=== PATIENT | male | born 1980 | race Caucasian/White ===

== ENCOUNTER 2017-07-25 00:44 | Emergency (ER) | payer OTHER ==
[~2017-07-25] VITALS: Ht 177.8 cm; Wt 93.0 kg
[~2017-07-25 00:44] MED LIST: CIPRO 500MG TA500 MG PO; KEFLEX 500MG.500 MG PO; MEDROL 4MG. DOSE4 MG PO; NOMEDS XX
--- OUTSIDE RECORDS SUMMARY | 2017-07-25 00:54 | External Medical Summary Rpt | CCD ---
Author Author JANNET Address Unknown Phone [email or web address] Purpose Continuity of Care Document - through 2016
--- OUTSIDE RECORDS SUMMARY | 2017-07-25 00:54 | External Medical Summary Rpt | CCD ---
Author Author Conduent Organization Conduent Address Unknown Phone Unavailable Purpose Continuity of Care Document - through 2016
--- OUTSIDE RECORDS SUMMARY | 2017-07-25 00:54 | External Medical Summary Rpt | CCD ---
Author Author JANNET Address Unknown Phone [email or web address] Purpose Continuity of Care Document - through 2016
--- OUTSIDE RECORDS SUMMARY | 2017-07-25 00:55 | External Medical Summary Rpt | CCD ---
Demographics Preferred Language Latvian Marital Status Unknown Cheondoism Affiliation Unknown Race Unknown Ethnic Group Unknown Author Author , JANNET Organization JANNET Address Unknown Phone [email or web address] Immunization Name Date Rout CVX Reac Dose Comm Prov Is Faci e tion ent ider Refu lity Give sed n Td 08- 9 999 Hist H149 No H149 (miriam 03-17 oric lt), 96 al Info adso rmat rbed ion - Sour ce Unsp ecif ied Serge 08 2 999 Hist H149 No H149 o-OP - oric V 96 al Info rmat ion - Sour ce Unsp ecif ied
--- OUTSIDE RECORDS SUMMARY | 2017-07-25 00:55 | External Medical Summary Rpt | CCD ---
Demographics Preferred Language [place] Islander Marital Status Unknown Sikh Affiliation Unknown Race Unknown Ethnic Group Unknown Author Author , JANNET Organization JANNET Address Unknown Phone [email or web address] Immunization Name Date Rout CVX Reac Dose [...]
--- NOTE | 2017-07-25 01:04 | Emergency Room Report ---
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 N Clinical Suspician of Infection? Y Mental Status: 1 - Regular (Normal Baseline) Sepsis Risk:Low Sepsis Risk Have you (or family members/close friends) recently traveled outside the [place]? N If Yes, where/when: Have you had exposure to infectious disease within the past month? N TB? Other? Specify: Comment The patient complains of a 24 hour history of LEFT upper dental pain with facial swelling. No fever. He does have a dentist that he can follow-up with. ALLERGIES Coded Allergies: No Known Allergies (10/08/15) Home Medications Active Scripts CEPHALEXIN (Keflex 500MG Capsule) 500 MG PO Q8H #30 CAP Prov: 10/08/15 Reported Medications No Home Medications (NO HOME MEDICATIONS) 1 EACH XX ONCE History Medical History General CAD? No Angina: No MS: No Hypertension? No Hyperlipidemia? No CHF? No DVT? No PE? No COPD? No Asthma? No Anemia? No GERD? No Gastric ulcers? No GI Bleed? No Hernia? No Thyroid Problems? No Hypothyroidism? No CVA? No Seizures? No Diabetes? No Renal Insuffiency? No End Stage Renal Disease? No UTI? No Stones? No BPH? No GB Disease: No Nephritic Syndrome? No Asplenia? No Hepatitis? No Sickle Cell Disease? No Arthritis? No Migraines? No Cataracts? No Glaucoma? No MRSA? No HIV? No TB? No Anxiety? No Depression? No Cancer? No More? No Immunization Hx DT/Tetanus 5-10 Years Ago Surgical Hx Previous Surgery?Y Oral Surgery Social History Smoking Hx Smoker: Current Every Day Smoker Tobacco: Yes Type Cigarettes Packs/day < 1 Pack Alcohol Alcohol: No Review of Systems All Other Systems Reviewed and Negative Constitutional denies fever ENT mouth pain, dental caries. Physical Exam Vital Signs Vital Signs Date Time Temp Pulse Resp B/P Pulse O2 O2 Flow FiO2 Ox Delivery Rate 07/25 0143 99.0 83 20 148/84 99 07/25 0048 99.0 83 20 148/84 99 General Appearance mild distress (pain) Ear, Nose, Throat poor dentition. Severe dental caries diffusely. All of his teeth in the LEFT maxillary area are eroded down to the gumline. There is some generalized edema around his posterior LEFT maxillary teeth, but no pointing or visible abscess., LEFT facial swelling, malar. Tender. No induration or fluctuance., airway patent. No drooling or stridor., no sublingual or submandibular swelling. Respiratory Status No: respiratory distress. 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 Yes Mik was queried for this patient? Yes Comment [id number] rxs. Results/Orders Current Medication Orders Sig/Wei Start time Last Medication Dose Route Stop Time Status Admin Ceftriaxone Sodium 0 .STK-MED ONE 07/25 133 DC .ROUTE Lidocaine HCl 0 .STK-MED ONE 07/25 133 DC .ROUTE Lidocaine HCl 0 .STK-MED ONE 07/25 133 DC .ROUTE Acetaminophen/ 0 .STK-MED ONE 07/25 132 DC Codeine Phosphate PO Acetaminophen/ 1 MELANIE ONCE ONE 07/25 130 DC 07/25 Codeine Phosphate PO 07/25 Ceftriaxone Sodium 1 GM ONCE ONE 07/25 130 DC 07/25 IM 07/25 Lidocaine HCl 0 ONCE ONE 07/25 130 DC 07/25 IM 07/25 Lidocaine HCl 15 ML ONCE ONE 07/25 130 DC 07/25 TP 07/25 Orders Procedure Date/time Status DENTAL BALL 07/25 129 Active Departure Departure Disposition DC Home or Self Care(routine) Clinical Impression Primary Impression: Infected dental caries Condition STABLE Patient Instructions DI for Dental Pain, DI for Tooth Abscess, DI for Tooth Decay Additional Instructions Additional instructions for DENTAL PROBLEMS: See a dentist as soon as possible for further evaluation. Return immediately if you have an uncontrollable fever greater than 102 degrees, difficulty breathing or shortness of breath, persistent vomiting, or inability to swallow. Prescriptions Current Visit Scripts Penicillin V Potassium 500 MG PO QID #40 TAB HYDROCODONE/ACETAMINOPHEN (Bovey 5-325 Tablet) 1 TAB PO Q6HP PRN pain #6 TAB ED Critical Care Critical Care No at 0445
--- NOTE | 2017-07-25 01:04 | Emergency Room Report ---
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 N Clinical Suspician of Infection? Y Mental Status: 1 - Regular (Normal Baseline) Sepsis Risk:Low Sepsis Risk Have you (or family members/close friends) recently traveled outside the [place]? N If Yes, where/when: Have you had exposure to infectious disease within the past month? N TB? Other? Specify: Comment The patient complains of a 24 hour history of LEFT upper dental pain with facial swelling. No fever. He does have a dentist that he can follow-up with. ALLERGIES Coded Allergies: No Known Allergies (10/08/15) Home Medications Active Scripts CEPHALEXIN (Keflex 500MG Capsule) 500 MG PO Q8H #30 CAP Prov: 10/08/15 Reported Medications No Home Medications (NO HOME MEDICATIONS) 1 EACH XX ONCE History Medical History General CAD? No Angina: No MD: No Hypertension? No Hyperlipidemia? No CHF? No DVT? No PE? No COPD? No Asthma? No Anemia? No GERD? No Gastric ulcers? No GI Bleed? No Hernia? No Thyroid Problems? No Hypothyroidism? No CVA? No Seizures? No Diabetes? No Renal Insuffiency? No End Stage Renal Disease? No UTI? No Stones? No BPH? No GB Disease: No Nephritic Syndrome? No Asplenia? No Hepatitis? No Sickle Cell Disease? No Arthritis? No Migraines? No Cataracts? No Glaucoma? No MRSA? No HIV? No TB? No Anxiety? No Depression? No Cancer? No More? No Immunization Hx DT/Tetanus 5-10 Years Ago Surgical Hx Previous Surgery?Y Oral Surgery Social History Smoking Hx Smoker: Current Every Day Smoker Tobacco: Yes Type Cigarettes Packs/day < 1 Pack Alcohol Alcohol: No Review of Systems All Other Systems Reviewed and Negative Constitutional denies fever ENT mouth pain, dental caries. Physical Exam Vital Signs Vital Signs Date Time Temp Pulse Resp B/P Pulse O2 O2 Flow FiO2 Ox Delivery Rate 07/25 0143 99.0 83 20 148/84 99 07/25 0048 99.0 83 20 148/84 99 General Appearance mild distress (pain) Ear, Nose, Throat poor dentition. Severe dental caries diffusely. All of his teeth in the LEFT maxillary area are eroded down to the gumline. There is some generalized edema around his posterior LEFT maxillary teeth, but no pointing or visible abscess., LEFT facial swelling, malar. Tender. No induration or fluctuance., airway patent. No drooling or stridor., no sublingual or submandibular swelling. Respiratory Status No: respiratory distress. 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 Yes Mik was queried for this patient? Yes Comment [id number] 0 rxs. Results/Orders Current Medication Orders Sig/Wei Start time Last Medication Dose Route Stop Time Status Admin Ceftriaxone Sodium 0 .STK-MED ONE 07/25 133 DC .ROUTE Lidocaine HCl 0 .STK-MED ONE 07/25 133 DC .ROUTE Lidocaine HCl 0 .STK-MED ONE 07/25 133 DC .ROUTE Acetaminophen/ 0 .STK-MED ONE 07/25 132 DC Codeine Phosphate PO Acetaminophen/ 1 MELANIE ONCE ONE 07/25 130 DC 07/25 Codeine Phosphate PO 07/25 Ceftriaxone Sodium 1 GM ONCE ONE 07/25 130 DC 07/25 IM 07/25 Lidocaine HCl 0 ONCE ONE 07/25 130 DC 07/25 IM 07/25 Lidocaine HCl 15 ML ONCE ONE 07/25 130 DC 07/25 TP 07/25 Orders Procedure Date/time Status DENTAL BALL 07/25 129 Active Departure Departure Disposition DC Home or Self Care(routine) Clinical Impression Primary Impression: Infected dental caries Condition STABLE Patient Instructions DI for Dental Pain, DI for Tooth Abscess, DI for Tooth Decay Additional Instructions Additional instructions for DENTAL PROBLEMS: See a dentist as soon as possible for further evaluation. Return immediately if you have an uncontrollable fever greater than 102 degrees, difficulty breathing or shortness of breath, persistent vomiting, or inability to swallow. Prescriptions Current Visit Scripts Penicillin V Potassium 500 MG PO QID #40 TAB HYDROCODONE/ACETAMINOPHEN (Lyman 5-325 Tablet) 1 TAB PO Q6HP PRN pain #6 TAB ED Critical Care Critical Care No at 0448
[2017-07-25] MEDS ORDERED: NORCO 325 MG-51 TAB PO (01:34)
[2017-07-25] MEDS ORDERED: PENICILLIN VK500 M1 PO (01:34)
[2017-07-25 01:43] VITALS: BP 148/84
== END 2017-07-25 01:52 | disposition home or self-care (01) ==
LOC: ER 00:44
DX: K02.9 Dental caries, unspecified (principal); F17.210 Nicotine dependence, cigarettes, uncomplicated